=== PATIENT | female | born 1940 | race Caucasian/White ===

== ENCOUNTER 2021-12-15 02:39 | Emergency (ER) | payer MEDICARE, SELFPAY ==
[2021-12-15] VITALS (16 sets, daily range): BP systolic 116–181; BP diastolic 55–82; PULSE 58–77; RESP 15–24; TEMP 36.6; O2SAT 93–98; BMI 21.9
--- NOTE | 2021-12-15 02:54 | DI.RAD.S_ITS ---
PROCEDURE: XR CHEST 1V INDICATIONS: chest pain TECHNIQUE: One view of the chest was acquired. COMPARISON: None. FINDINGS: Surgical changes and devices: Patient is status post reverse right shoulder arthroplasty. Lungs and pleura: Lungs are clear. Hyperinflation and chronic emphysematous changes are seen. No pleural effusions or pneumothorax. Mediastinum: Mediastinal contours appear normal. Heart size is normal. Bones and chest wall: No suspicious bony lesions. Overlying soft tissues appear unremarkable. IMPRESSION: No acute cardiopulmonary pathology. COPD. No discrepancies. Dictated by: Gurdeep Partida M.D. on 12/15/2021 at 8:09 Approved by: Gurdeep Partida M.D. on 12/15/2021 at 8:11
--- NOTE | 2021-12-15 02:55 | ED.GENADULT ---
HPI - General Adult General Chief complaint: Abdominal Pain Stated complaint: Heartburn Time Seen by Provider: 12/15/21 02:41 Source: EMS Mode of arrival: EMS History of Present Illness HPI narrative: 81-year-old woman with a history of atrial fibrillation on diltiazem and aspirin only no prior history of coronary artery disease was awoken from sleep this evening around 12 30 in the morning after going to bed approximately 10:00 p.m. with severe burning in the epigastrium up through her chest and into her neck. She is complaining of an acid taste in her mouth. She has never had severe reflux like this before. She has taken a total of 8 Tums and has not had any relief. She states that she did initially have some tightness through her upper chest and isn't sure if that is still present or not. She denies diaphoresis, dyspnea. She notes that she had a Zio patch in place for 2 weeks in November, confirms she was not having recurrent episodes of atrial fibrillation. She notes she was out hiking approximately 3 miles yesterday and the day before with no worsening fatigue, chest pain, palpitations or dyspnea. Related Data Previous Rx's Medication Instructions Recorded omeprazole 40 mg capsule,delayed 40 mg PO DAILY #14 caps 12/15/21 release Allergies Allergy/AdvReac Type Severity Reaction Status Date / Time diazepam Allergy Verified 12/15/21 02:55 Review of Systems Review of Systems Narrative: Remainder of complete review of systems is otherwise unremarkable except for that included in the HPI. Patient History Medical History Hypothyroidism (acquired) Paroxysmal atrial fibrillation Social History Smoking Status: Never smoker Smoking Status: Never smoker alcohol intake frequency: 0-2 drinks per day Substance Use Type: does not use Exam Initial Vital Signs Initial Vital Signs: Vital Signs Temperature 97.9 F 12/15/21 02:50 Pulse Rate 74 12/15/21 02:50 Respiratory Rate 16 12/15/21 02:50 Blood Pressure 181/82 H 12/15/21 02:50 Pulse Oximetry 97 12/15/21 02:50 Oxygen Delivery Method 12/15/21 02:50 General: Healthy appearing, in no acute distress. Able to give a complete and coherent history. HEENT: Moist mucous membranes, normal sclera with reactive pupils, Neck: No JVD, supple Respiratory: Lungs are clear to auscultation, no wheezing no rales no rhonchi. Full and symmetrical air movement Cardiac: Regular rate and rhythm no murmurs no bruits Abdomen: Soft, nontender, good bowel tones, no flank pain Skin: Warm and dry, no rashes Neurologic: Grossly neurologically intact with no obvious asymmetries or abnormalities Extremities: No trauma, well perfused Psych: Cooperative, appropriate insight and affect Course Orders Ordered: ED Orders 12/15/21 02:43 Complete Blood Count AUTO DIFF Stat Comprehensive Metabolic Panel Stat Magnesium Stat Troponin I Stat 12/15/21 02:46 EKG-12 Lead Routine 12/15/21 02:54 XR chest 1V Stat 12/15/21 03:05 COVID19 -Nasal RAPID/Pre-Proc Stat 12/15/21 04:50 Troponin I Stat Nitroglycerin (Nitroglycerin 0.4 Mg Sl Tab) 0.4 mg SL [id number] PRN PRN Reason: Chest Pain Last Admin: 12/15/21 03:05 Dose: 0.4 mg Documented By: MOOKIE Discontinued Medications Aspirin (Aspirin 81 Mg Chew Tab) 324 mg PO NOW ONE Stop: 12/15/21 02:52 Last Admin: 12/15/21 03:06 Dose: 324 mg Documented By: MOOKIE Vital Signs Vital signs: Vital Signs - 8 hr 12/15/21 02:50 12/15/21 03:05 Temperature 97.9 F Pulse Rate 74 75 Respiratory Rate 16 Blood Pressure 181/82 H 167/81 H Pulse Oximetry 97 Oxygen Delivery Method Room Air Medical Decision Making Lab Data Result diagrams: 12/15/21 02:43 12/15/21 02:43 Labs: Lab Results 12/15/21 12/15/21 12/15/21 Range/Units 02:43 02:43 02:43 WBC 6.6 (4.5-11.0) X10^3/uL RBC 4.41 (4.0-5.2) X10^6/uL Hgb 11.8 L (12.0-16.0) g/dL Hct 36.2 (36-46) % MCV 82.2 (80-100) fL MCH 26.9 (26-34) PG MCHC 32.7 (30-36) % RDW 14.8 (11.6-14.8) % Plt Count 327 (150-400) X10^3/uL Neut % (Auto) 71.6 (50-75) % Lymph % (Auto) 16.0 L (25-40) % [place] % (Auto) 10.4 (3-14) % Eos % (Auto) 1.0 L (2-4) % Baso % (Auto) 1.0 (0-2) % Neut # (Auto) 4700 (6621-5399) /uL Lymph # (Auto) 1100 (0612-4500) /uL [place] # (Auto) 700 (0-900) /uL Eos # (Auto) 100 (0-450) /uL Baso # (Auto) 100 (0-100) /uL Sodium 140 (137-145) mmol/L Potassium 3.4 (3.4-5.1) mmol/L Chloride 106 (98-107) mmol/L Carbon Dioxide 29 (22-32) mmol/L BUN 25 H (7-17) mg/dL Creatinine 0.85 (0.52-1.04) mg/dL Estimated GFR > 60 (>60) mL/min BUN/Creatinine Ratio 29.4 H (6-22) Glucose 125 H (80-110) mg/dL Calcium 8.6 (8.4-10.2) mg/dL Magnesium 2.1 (1.6-2.3) mg/dL Total Bilirubin 0.3 (0.2-1.3) mg/dL AST 23 (14-36) IU/L ALT 14 (<35) IU/L Alkaline Phosphatase 57 (38-126) U/L Troponin I < 0.012 (0.01-0.034) ng/mL Total Protein 7.1 (6.3-8.2) g/dL Albumin 3.8 (3.5-5.0) g/dL Globulin 3.3 (1.7-4.1) g/dL Albumin/Globulin Ratio 1.2 (1.0-2.8) SARS-CoV-2 (PCR) (Negative) 12/15/21 12/15/21 Range/Units 03:05 04:50 WBC (4.5-11.0) X10^3/uL RBC (4.0-5.2) X10^6/uL Hgb (12.0-16.0) g/dL Hct (36-46) % MCV (80-100) fL MCH (26-34) PG MCHC (30-36) % RDW (11.6-14.8) % Plt Count (150-400) X10^3/uL Neut % (Auto) (50-75) % Lymph % (Auto) (25-40) % [place] % (Auto) (3-14) % Eos % (Auto) (2-4) % Baso % (Auto) (0-2) % Neut # (Auto) (4525-5852) /uL Lymph # (Auto) (1856-5700) /uL [place] # (Auto) (0-900) /uL Eos # (Auto) (0-450) /uL Baso # (Auto) (0-100) /uL Sodium (137-145) mmol/L Potassium (3.4-5.1) mmol/L Chloride (98-107) mmol/L Carbon Dioxide (22-32) mmol/L BUN (7-17) mg/dL Creatinine (0.52-1.04) mg/dL Estimated GFR (>60) mL/min BUN/Creatinine Ratio (6-22) Glucose (80-110) mg/dL Calcium (8.4-10.2) mg/dL Magnesium (1.6-2.3) mg/dL Total Bilirubin (0.2-1.3) mg/dL AST (14-36) IU/L ALT (<35) IU/L Alkaline Phosphatase (38-126) U/L Troponin I < 0.012 (0.01-0.034) ng/mL Total Protein (6.3-8.2) g/dL Albumin (3.5-5.0) g/dL Globulin (1.7-4.1) g/dL Albumin/Globulin Ratio (1.0-2.8) SARS-CoV-2 (PCR) Negative (Negative) Imaging Data Chest x-ray: Radiologist's Impression: No acute cardiopulmonary abnormality is identified. Normal heart size. Amina De León MD ECG Data Interpretation: Sinus rhythm at a rate of 72 Normal intervals, normal axis No acute ischemic changes MDM Narrative Medical decision making narrative: 81-year-old woman who awoke with severe epigastric pain radiating up through her entire chest into her neck that did not respond to Tums. She has never had similar symptoms quite this severe. Initial x-ray and troponin are unremarkable. Symptoms did improve somewhat with nitroglycerin. She states that she was fairly active in was hiking the previous 2 days with no fatigue, pain, increased shortness of breath. Second troponin will be drawn at 5:00 a.m.. Patient is feeling better and blood pressure is coming down. Patient is updated with findings as well as plan for 2nd troponin 5:00 a.m.. Patient has remained stable throughout her emergency department stay. The burning sensation as well as the acid taste, chest tightness has all resolved. Her 2nd troponin remains unremarkable. Her heart score is 2 for age alone. At this point I suspect that this is reflux more than cardiac etiology. Will ask her to consider 2 weeks of omeprazole and I do feel it is safe for her to continue on her travels. Findings are shared with her, questions are answered she is safe for home discharge Discharge Plan Departure Patient Disposition: Home Clinical Impression: Acid reflux Qualifiers: Esophagitis presence: esophagitis presence not specified Qualified Code(s): K21.9 - Gastro-esophageal reflux disease without esophagitis Instructions: DI for Heartburn Activity Restrictions/Additional Instructions: Thank you for coming in today Your workup in the emergency department was very reassuring. You have normal blood work including serial troponins, heart specific enzyme that suggests heart attack. Your EKG and chest x-ray were equally reassuring. At this point, after ruling out the life-threatening explanations for your pain, the most likely explanation is in fact significant heartburn with gastric reflux. It may be that your travels, different food or change in schedule cause this problem. I am going to suggest that you consider taking omeprazole daily for the next 2 weeks. I believe it is safe for you to continue your travels and I hope you enjoyed a the upcoming wedding. If you find that you are getting worse or develop any new symptoms, please feel free to return to the emergency department for further evaluation. Prescriptions: New omeprazole 40 mg capsule,delayed release(DR/EC) 40 mg PO DAILY Qty: 14 0RF
[2021-12-15] MEDS: NITROGLYCERIN 0.4 MG SL TAB SL (03:05)
[2021-12-15 03:06] LABS: Magnesium 2.1 mg/dL (1.6-2.3)
[2021-12-15] MEDS: ASPIRIN 81 MG CHEW TAB 324 MG PO (03:06)
[2021-12-15 03:07] LABS: Alanine Aminotransferase 14 IU/L (<35); Albumin 3.8 g/dL (3.5-5.0); Albumin Globulin Ratio 1.2 (1.0-2.8); Alkaline Phosphatase 57 U/L (38-126); Aspartate Aminotransferase 23 IU/L (14-36); BUN Creatinine Ratio 29.4 (6-22); Bilirubin Total 0.3 mg/dL (0.2-1.3); Blood Urea Nitrogen 25 mg/dL (7-17); Calcium 8.6 mg/dL (8.4-10.2); Carbon Dioxide 29 mmol/L (22-32); Chloride 106 mmol/L (98-107); Estimated Glomerular Filt Rate > 60 mL/min (>60); Globulin 3.3 g/dL (1.7-4.1); Glucose 125 mg/dL (80-110); HEMOLYSIS < 15 (0-50); Potassium 3.4 mmol/L (3.4-5.1); Sodium 140 mmol/L (137-145); Total Protein 7.1 g/dL (6.3-8.2)
[2021-12-15 03:08] LABS: Add Manual Diff / Slide Review NO; Basophils Absolute Auto 100 /uL (0-100); Eosinophils Absolute Auto 100 /uL (0-450); Hematocrit 36.2 % (36-46); Hemoglobin 11.8 g/dL (12.0-16.0); Lymphocytes Absolute Auto 1100 /uL (1100-4500); Mean Corpuscular HGB Conc 32.7 % (30-36); Mean Corpuscular Hemoglobin 26.9 PG (26-34); Mean Corpuscular Volume 82.2 fL (80-100); Monocytes Absolute Auto 700 /uL (0-900); Monocytes Percent Auto 10.4 % (3-14); Neutrophils Absolute Auto 4700 /uL (1500-7000); Neutrophils Percent Auto 71.6 % (50-75); Platelet Count 327 X10^3/uL (150-400); Red Blood Cell Count 4.41 X10^6/uL (4.0-5.2); Red Cell Distribution Width 14.8 % (11.6-14.8); White Blood Cell Count 6.6 X10^3/uL (4.5-11.0)
[2021-12-15 03:19] LABS: Troponin I < 0.012 ng/mL (0.01-0.034)
[2021-12-15 03:27] LABS: COVID19 -Nasal RAPID Negative (Negative)
--- NOTE | 2021-12-15 04:36 | PC.NURSE ---
pt ambulated to restroom with a steady gait
[2021-12-15 05:24] LABS: Troponin I < 0.012 ng/mL (0.01-0.034)
== END 2021-12-15 06:35 | disposition home or self-care (01) ==
PROVIDERS: Emergency Provider Emergency Medicine
DX: K21.9 Gastro-esophageal reflux disease without esophagitis (principal); Z20.822 Contact with and (suspected) exposure to COVID-19
CPT/HCPCS: 36415; 71045; 80053; 83735; 84484; 85025; 87635; 93005; 93010; 99283; 99284; C9803